=== PATIENT | female | born 1980 | race Caucasian/White ===

== ENCOUNTER → 2020-11-20 | Outpatient (CLI) | payer BC | LOC: LAB 12:44 | DX: R53.83 Other fatigue (principal); E55.9 Vitamin D deficiency, unspecified; E03.9 Hypothyroidism, unspecified; D89.89 Other specified disorders involving the immune mechanism, not elsewhere classified; R76.8 Other specified abnormal immunological findings in serum; M25.50 Pain in unspecified joint | CPT/HCPCS: 36415; 82728; 84439; 84443 ==